=== PATIENT | female | born 1980 | race African-American/Black ===

== ENCOUNTER 2020-09-05 21:33 | Emergency (ER) | payer MEDICAID ==
[~2020-09-05] VITALS: Ht 177.8 cm; Wt 64.0 kg
[2020-09-05] MEDS ORDERED: DICYCLOMINE 10 MG/5 ML ORAL SYR PO STA (23:31)
[2020-09-05] MEDS ORDERED: ONDANSETRON HCL 4MG/2ML INJ IV STA (23:31)
[2020-09-05] MEDS ORDERED: MAGNESIUM/ALUMINUM HYDROXIDE/SIMETHICONE 30ML UDC PO STA (23:31)
[2020-09-05] MEDS ORDERED: SODIUM CHLORIDE 0.9% 1,000 ML IV ONE (23:45)
[2020-09-06 00:05] LABS: BASOPHILS % 0.6 % (0.0-2.0); CHLORIDE 106 mEq/L (98-107); HEMATOCRIT. 39.9 % (36.0-48.0); HEMOGLOBIN. 14.1 g/dL (12.0-16.0); MEAN CORPUSCULAR HEMOGLOBIN 30.2 pg (28.0-32.0); MEAN CORPUSCULAR VOLUME 85.5 fL (81.0-99.0); MEAN PLATELET VOLUME 7.2 fl (7.4-10.4); MONOCYTES % 7.9 % (2.0-8.0); NEUTROPHILS % 69.5 % (40.0-76.0); PLATELET 180 x1000/uL (130-400); RED BLOOD CELL COUNT 4.67 mill/uL (4.2-5.4); RED CELL DISTRIBUTION WIDTH 13.5 % (11.6-14.6)
[2020-09-06 00:11] LABS: HCG SCREEN NEGATIVE
[2020-09-06 01:00] VITALS: BP 117/88
[2020-09-06] MEDS ORDERED: ONDA4TAB5 MT (01:10)
[2020-09-07] MEDS ORDERED: MAG-55 MT (10:45)
== END 2020-09-06 02:20 | disposition home or self-care (01) ==
LOC: ER 21:33
DX: R11.2 Nausea with vomiting, unspecified (principal); Z88.6 Allergy status to analgesic agent; R56.9 Unspecified convulsions; Z98.51 Tubal ligation status
CPT/HCPCS: 36415; 80053; 83690; 84703; 85025; 96361; 96374; 99283; J2405; J7030; Z7610

== ENCOUNTER 2020-09-07 08:27 | Emergency (ER) | payer MEDICAID ==
[~2020-09-07] VITALS: Ht 170.2 cm; Wt 60.0 kg
[~2020-09-07 08:27] MED LIST: ONDA4TAB5 MT
[2020-09-07 10:45] VITALS: BP 118/80
[2020-09-07] MEDS ORDERED: MAG-55 MT (10:45)
== END 2020-09-07 11:15 | disposition home or self-care (01) ==
LOC: ER 08:27
DX: K21.00 Gastro-esophageal reflux disease with esophagitis, without bleeding (principal); Z79.82 Long term (current) use of aspirin; Z98.51 Tubal ligation status; Z98.890 Other specified postprocedural states; Z86.59 Personal history of other mental and behavioral disorders
CPT/HCPCS: 99281

== ENCOUNTER 2020-09-08 15:52 | Inpatient (IN) | payer MEDICAID ==
[~2020-09-08] VITALS: Ht 177.8 cm; Wt 69.4 kg
[~2020-09-08 15:52] MED LIST changes: +MAG-55 MT
[2020-09-08] MEDS ORDERED: SODIUM CHLORIDE 0.9% 1,000 ML IV ONE (16:15)
[2020-09-08 16:36] LABS: BASOPHILS % 0.5 % (0.0-2.0); EOSINOPHILS % 0.9 % (0.0-5.0); HEMATOCRIT. 39.6 % (36.0-48.0); HEMOGLOBIN. 13.5 g/dL (12.0-16.0); LYMPHOCYTES % 34.5 % (20.0-50.0); MEAN CORPUSCULAR HEMOGLOBIN 29.3 pg (28.0-32.0); MEAN CORPUSCULAR VOLUME 86.2 fL (81.0-99.0); MEAN PLATELET VOLUME 7.1 fl (7.4-10.4); NEUTROPHILS % 53.1 % (40.0-76.0); PLATELET 263 x1000/uL (130-400); RED BLOOD CELL COUNT 4.59 mill/uL (4.2-5.4); RED CELL DISTRIBUTION WIDTH 13.6 % (11.6-14.6)
[2020-09-08 16:43] LABS: CHLORIDE 111 mEq/L (98-107)
[2020-09-08 17:26] LABS: CLARITY URINE CLEAR (CLEAR); COLOR URINE YELLOW (YELLOW); KETONES URINE NEGATIVE (NEGATIVE); LEUKOCYTE ESTERASE URINE TRACE (NEGATIVE); NITRITE URINE NEGATIVE (NEGATIVE); OCCULT BLOOD URINE 2+ (NEGATIVE); PROTEIN URINE NEGATIVE (NEGATIVE); SPECIFIC GRAVITY URINE 1.005 (1.005-1.030); UROBILINOGEN URINE 0.2 E.U./dL (0.2-1.0)
[2020-09-08] MEDS ORDERED: POTASSIUM CHLORIDE 20MEQ TABLET SR PO ONE (17:30)
[2020-09-08 17:52] LABS: HCG SCREEN NEGATIVE
[2020-09-08] MEDS ORDERED: IOHEXOL-300 100 ML BOTTLE ONE (22:29)
[2020-09-08] MEDS ORDERED: CEFTRIAXONE 1 G PREMIX 50 ML IV ONE (23:00)
[2020-09-09] MEDS ORDERED: AZITHROMYCIN 500 MG in DEXT 5% WATER 250 ML IV SCH
[2020-09-09 04:00] VITALS: BP 132/84
[2020-09-09] MEDS ORDERED: LOPERAMIDE HCL 2MG CAPSULE PO PRN (05:00)
[2020-09-09 08:00] VITALS: BP 123/84
[2020-09-09] MEDS: ENOXAPARIN 40MG/0.4ML SYR SUBCUT SCH (09:07)
[2020-09-09] MEDS ORDERED: ONDANSETRON HCL 4MG/2ML INJ IV PRN (12:30)
[2020-09-09] MEDS ORDERED: ACETAMINOPHEN 325MG TABLET PO PRN (12:30)
[2020-09-09] MEDS ORDERED: MAGNESIUM/ALUMINUM HYDROXIDE/SIMETHICONE 30ML UDC PO PRN (13:30)
[2020-09-09 16:00] VITALS: BP 119/80
[2020-09-09 19:12] LABS: *AMPHETAMINES SCREEN URINE NEGATIVE (NEGATIVE); *BARBITURATES SCREEN URINE NEGATIVE (NEGATIVE); *BENZODIAZEPINES SCREEN URINE NEGATIVE (NEGATIVE); *COCAINE SCREEN URINE NEGATIVE (NEGATIVE); METHADONE URINE SCREEN NEGATIVE (NEGATIVE)
[2020-09-09 19:13] LABS: CANNABINOID URINE SCREEN NEGATIVE (NEGATIVE); OPIATES URINE SCREEN NEGATIVE (NEGATIVE); PHENCYCLIDINE URINE SCREEN NEGATIVE (NEGATIVE)
[2020-09-09 20:00] VITALS: BP 121/81
[2020-09-09] MEDS: FAMOTIDINE 20MG TABLET PO SCH (20:42)
[2020-09-10] VITALS: BP 125/89
[2020-09-10] MEDS ORDERED: AZITHROMYCIN 500MG in DEXTROSE 5% WATER 250ML IV SCH
[2020-09-10 06:35] LABS: CHLORIDE 109 mEq/L (98-107)
[2020-09-10 06:36] LABS: EOSINOPHILS % 3.3 % (0.0-5.0); HEMATOCRIT. 37.9 % (36.0-48.0); HEMOGLOBIN. 12.9 g/dL (12.0-16.0); LYMPHOCYTES % 30.9 % (20.0-50.0); MEAN CORPUSCULAR HEMOGLOBIN 29.1 pg (28.0-32.0); MEAN CORPUSCULAR VOLUME 85.4 fL (81.0-99.0); MEAN PLATELET VOLUME 7.1 fl (7.4-10.4); MONOCYTES % 13.6 % (2.0-8.0); NEUTROPHILS % 51.2 % (40.0-76.0); PLATELET 293 x1000/uL (130-400); RED BLOOD CELL COUNT 4.44 mill/uL (4.2-5.4); RED CELL DISTRIBUTION WIDTH 13.6 % (11.6-14.6)
[2020-09-10 07:57] VITALS: BP 112/77
[2020-09-10] MEDS: ENOXAPARIN 40MG/0.4ML SYR SUBCUT SCH (08:23)
[2020-09-10 11:40] VITALS: BP 110/72
[2020-09-10 16:00] VITALS: BP 109/76
[2020-09-10] MEDS ORDERED: POTASSIUM CHLORIDE 20MEQ TABLET SR PO NR (17:00)
[2020-09-10 20:00] VITALS: BP 115/78
[2020-09-10] MEDS: FAMOTIDINE 20MG TABLET PO SCH (20:51)
[2020-09-11] VITALS: BP 99/66
[2020-09-11 04:00] VITALS: BP 102/65
[2020-09-11 07:27] LABS: CHLORIDE 108 mEq/L (98-107)
[2020-09-11 07:34] LABS: HEMOGLOBIN. 13.1 g/dL (12.0-16.0); MEAN CORPUSCULAR VOLUME 86.8 fL (81.0-99.0); MEAN PLATELET VOLUME 7.2 fl (7.4-10.4); PLATELET 296 x1000/uL (130-400); RED BLOOD CELL COUNT 4.38 mill/uL (4.2-5.4); RED CELL DISTRIBUTION WIDTH 13.5 % (11.6-14.6)
[2020-09-11 08:00] VITALS: BP 99/63
[2020-09-11] MEDS: LACTOBACILLUS GG CAPSULE PO SCH (09:50)
[2020-09-11] MEDS: ENOXAPARIN 40MG/0.4ML SYR SUBCUT SCH (09:50)
[2020-09-11 12:00] VITALS: BP 108/72
[2020-09-11 14:18] LABS: PLATELET ESTIMATE NORMAL
[2020-09-11 16:00] VITALS: BP 113/76
[2020-09-11] MEDS: FAMOTIDINE 20MG TABLET PO SCH (19:32)
[2020-09-11 20:00] VITALS: BP 118/72
[2020-09-12 00:02] VITALS: BP 112/77
[2020-09-12 04:00] VITALS: BP 109/69
[2020-09-12] MEDS: LACTOBACILLUS GG CAPSULE PO SCH (09:17)
[2020-09-12] MEDS: ENOXAPARIN 40MG/0.4ML SYR SUBCUT SCH (09:19)
[2020-09-12 11:28] VITALS: BP 104/68
== END 2020-09-12 13:24 | disposition home or self-care (01) | DRG 137 ==
LOC: ER 15:52 → 7WST 09-09 00:51 → ENRESERV 09-09 02:39
PROVIDERS: ADMIT Internal Medicine; ATTEND Internal Medicine
DX: U07.1 COVID-19 (principal); E87.8 Other disorders of electrolyte and fluid balance, not elsewhere classified; D25.9 Leiomyoma of uterus, unspecified; G40.909 Epilepsy, unspecified, not intractable, without status epilepticus; D72.819 Decreased white blood cell count, unspecified; E87.6 Hypokalemia; Z87.891 Personal history of nicotine dependence; Z79.82 Long term (current) use of aspirin; Z79.899 Other long term (current) drug therapy
CPT/HCPCS: 36415; 74177; 80048; 80053; 80305; 81003; 82962; 84703; 85025; 87015; 87045; 87427; 87449; 93005; 99285; J0456; J0696; J1650; J2405; J7030; J7060; Q9967; U0003

== ENCOUNTER 2020-09-18 17:50 | Emergency (ER) | payer MEDICAID ==
[~2020-09-18] VITALS: Ht 165.1 cm; Wt 66.0 kg
[2020-09-18] MEDS ORDERED: ONDANSETRON HCL 4MG/2ML INJ IV ONE (18:45)
[2020-09-18] MEDS ORDERED: ACETAMINOPHEN 325MG TABLET PO ONE (18:45)
[2020-09-18] MEDS ORDERED: SODIUM CHLORIDE 0.9% 1,000 ML IV ONE (18:45)
[2020-09-18 20:12] LABS: BASOPHILS % 1.1 % (0.0-2.0); EOSINOPHILS % 0.9 % (0.0-5.0); HEMATOCRIT. 37.1 % (36.0-48.0); HEMOGLOBIN. 12.8 g/dL (12.0-16.0); LYMPHOCYTES % 28.6 % (20.0-50.0); MEAN CORPUSCULAR HEMOGLOBIN 30.6 pg (28.0-32.0); MEAN CORPUSCULAR VOLUME 88.7 fL (81.0-99.0); MEAN PLATELET VOLUME 6.9 fl (7.4-10.4); MONOCYTES % 10.1 % (2.0-8.0); NEUTROPHILS % 59.3 % (40.0-76.0); PLATELET 352 x1000/uL (130-400); RED BLOOD CELL COUNT 4.19 mill/uL (4.2-5.4); RED CELL DISTRIBUTION WIDTH 13.9 % (11.6-14.6)
[2020-09-18 20:16] LABS: CHLORIDE 109 mEq/L (98-107)
[2020-09-18 20:26] LABS: HCG SCREEN NEGATIVE
[2020-09-18 21:07] LABS: CLARITY URINE CLEAR (CLEAR); COLOR URINE YELLOW (YELLOW); KETONES URINE TRACE (NEGATIVE); LEUKOCYTE ESTERASE URINE TRACE (NEGATIVE); NITRITE URINE NEGATIVE (NEGATIVE); OCCULT BLOOD URINE 3+ (NEGATIVE); PROTEIN URINE TRACE (NEGATIVE); SPECIFIC GRAVITY URINE 1.021 (1.005-1.030); UROBILINOGEN URINE 0.2 E.U./dL (0.2-1.0)
[2020-09-18] MEDS: MECLIZINE 25MG TABLET PO ONE ×2 (21:19→23:52)
[2020-09-18] MEDS ORDERED: MECL-217 MT (23:08)
[2020-09-18] MEDS ORDERED: IOHEXOL-300 100 ML BOTTLE ONE (23:16)
[2020-09-18 23:50] VITALS: BP 130/82
[2020-09-19] MEDS ORDERED: CEPH500T MT (22:20)
== END 2020-09-19 01:12 | disposition home or self-care (01) ==
LOC: ER 17:50
DX: R10.9 Unspecified abdominal pain (principal); R42 Dizziness and giddiness; R56.9 Unspecified convulsions; Z88.0 Allergy status to penicillin
CPT/HCPCS: 36415; 70450; 71045; 74177; 76705; 80048; 80076; 81003; 81025; 83690; 84484; 84703; 85025; 93005; 96361; 96374; 99285; J2405; J7030; J8597; Q9967; Z7610

== ENCOUNTER 2020-09-19 18:38 | Emergency (ER) | payer MEDICAID ==
[~2020-09-19] VITALS: Ht 165.1 cm; Wt 52.0 kg
[~2020-09-19 18:38] MED LIST changes: +MECL-217 MT
[2020-09-19] MEDS ORDERED: SODIUM CHLORIDE 0.9% 1,000 ML IV ONE (19:45)
[2020-09-19 20:16] LABS: BASOPHILS % 0.4 % (0.0-2.0); HEMATOCRIT. 37.4 % (36.0-48.0); HEMOGLOBIN. 12.8 g/dL (12.0-16.0); LYMPHOCYTES % 11.8 % (20.0-50.0); MEAN CORPUSCULAR HEMOGLOBIN 30.4 pg (28.0-32.0); MEAN CORPUSCULAR VOLUME 88.7 fL (81.0-99.0); MONOCYTES % 3.6 % (2.0-8.0); NEUTROPHILS % 84.2 % (40.0-76.0); PLATELET 329 x1000/uL (130-400); RED BLOOD CELL COUNT 4.22 mill/uL (4.2-5.4); RED CELL DISTRIBUTION WIDTH 13.6 % (11.6-14.6)
[2020-09-19 20:20] LABS: CHLORIDE 112 mEq/L (98-107)
[2020-09-19 20:24] LABS: ETHANOL BLOOD < 10 mg/dL
[2020-09-19 21:26] LABS: CLARITY URINE CLEAR (CLEAR); COLOR URINE YELLOW (YELLOW); KETONES URINE NEGATIVE (NEGATIVE); LEUKOCYTE ESTERASE URINE TRACE (NEGATIVE); NITRITE URINE NEGATIVE (NEGATIVE); OCCULT BLOOD URINE 3+ (NEGATIVE); PROTEIN URINE NEGATIVE (NEGATIVE); SPECIFIC GRAVITY URINE 1.014 (1.005-1.030); UROBILINOGEN URINE 0.2 E.U./dL (0.2-1.0)
[2020-09-19 21:35] LABS: *AMPHETAMINES SCREEN URINE NEGATIVE (NEGATIVE); *BARBITURATES SCREEN URINE NEGATIVE (NEGATIVE); *BENZODIAZEPINES SCREEN URINE NEGATIVE (NEGATIVE); *COCAINE SCREEN URINE NEGATIVE (NEGATIVE); METHADONE URINE SCREEN NEGATIVE (NEGATIVE); OPIATES URINE SCREEN NEGATIVE (NEGATIVE); PHENCYCLIDINE URINE SCREEN NEGATIVE (NEGATIVE)
[2020-09-19 21:36] LABS: CANNABINOID URINE SCREEN NEGATIVE (NEGATIVE)
[2020-09-19] MEDS ORDERED: CEPH500T MT (22:20)
[2020-09-19 23:00] VITALS: BP 127/74
== END 2020-09-19 23:38 | disposition home or self-care (01) ==
LOC: ER 18:38
DX: N39.0 Urinary tract infection, site not specified (principal); R53.1 Weakness; R56.9 Unspecified convulsions; Z88.6 Allergy status to analgesic agent
CPT/HCPCS: 36415; 71045; 80053; 80305; 80320; 81003; 83880; 84484; 85025; 96360; 99285; J7030; G0480

== ENCOUNTER 2020-09-20 18:43 | Emergency (ER) | payer MEDICAID ==
[~2020-09-20] VITALS: Ht 177.8 cm; Wt 63.0 kg
[~2020-09-20 18:43] MED LIST changes: +CEPH500T MT
[2020-09-20] MEDS ORDERED: LORAZEPAM 2MG/ML CPJ IV PRN (20:15)
[2020-09-20] MEDS ORDERED: SODIUM CHLORIDE 0.9% 1,000 ML IV ONE (20:15)
[2020-09-20 20:48] LABS: BASOPHILS % 0.7 % (0.0-2.0); EOSINOPHILS % 0.3 % (0.0-5.0); HEMATOCRIT. 41.2 % (36.0-48.0); HEMOGLOBIN. 14.2 g/dL (12.0-16.0); LYMPHOCYTES % 22.2 % (20.0-50.0); MEAN CORPUSCULAR HEMOGLOBIN 30.2 pg (28.0-32.0); MEAN CORPUSCULAR VOLUME 87.6 fL (81.0-99.0); MEAN PLATELET VOLUME 7.3 fl (7.4-10.4); MONOCYTES % 10.5 % (2.0-8.0); NEUTROPHILS % 66.3 % (40.0-76.0); PLATELET 369 x1000/uL (130-400); RED CELL DISTRIBUTION WIDTH 14.3 % (11.6-14.6)
[2020-09-20 20:53] LABS: CHLORIDE 111 mEq/L (98-107)
[2020-09-20 20:56] LABS: HCG SCREEN NEGATIVE
[2020-09-20 21:11] LABS: INR 1.1; PROTHROMBIN TIME 11.4 sec (9.6-11.0)
[2020-09-20 21:51] LABS: CLARITY URINE CLOUDY (CLEAR); COLOR URINE YELLOW (YELLOW); KETONES URINE TRACE (NEGATIVE); LEUKOCYTE ESTERASE URINE 1+ (NEGATIVE); NITRITE URINE NEGATIVE (NEGATIVE); OCCULT BLOOD URINE 2+ (NEGATIVE); PH URINE 5.5 (4.5-8.0); PROTEIN URINE NEGATIVE (NEGATIVE); SPECIFIC GRAVITY URINE 1.017 (1.005-1.030); UROBILINOGEN URINE 0.2 E.U./dL (0.2-1.0)
[2020-09-21] MEDS ORDERED: PIPERACILLIN/TAZOBACTAM 3.375GM/50ML PREMIX IV SCH
[2020-09-21] MEDS ORDERED: KETOROLAC 30MG/ML VIAL IV ONE (00:30)
[2020-09-21] MEDS ORDERED: NITROFURANTOIN 100MG M/M CAPSULE PO ONE (00:30)
[2020-09-21] MEDS ORDERED: NITR100C MT (02:06)
[2020-09-21] MEDS ORDERED: HYDR50CA5 MT (02:06)
[2020-09-21] MEDS ORDERED: [UNRECOGNIZED DRUG - CODE] PO (02:06)
[2020-09-21 02:33] VITALS: BP 117/87
[2020-09-22] MEDS ORDERED: MELA3TAB40 MT (05:46)
[2020-09-22] MEDS ORDERED: LORA-249 MT (11:07)
== END 2020-09-21 03:47 | disposition home or self-care (01) ==
LOC: ER 18:43
DX: F41.9 Anxiety disorder, unspecified (principal); I49.9 Cardiac arrhythmia, unspecified; N39.0 Urinary tract infection, site not specified
CPT/HCPCS: 36415; 76700; 80053; 81003; 81025; 83690; 84703; 85025; 85610; 87040; 93005; 96361; 96365; 96375; 99285; J1885; J2060; J2543

== ENCOUNTER 2020-09-22 05:15 | Emergency (ER) | payer MEDICAID, OTHER ==
[~2020-09-22] VITALS: Ht 167.6 cm; Wt 61.0 kg
[~2020-09-22 05:15] MED LIST changes: +HYDR50CA5 MT; +NITR100C MT; +[UNRECOGNIZED DRUG - CODE] PO
[2020-09-22 05:17] VITALS: BP 141/90
[2020-09-22] MEDS ORDERED: MELA3TAB40 MT (05:46)
[2020-09-22] MEDS ORDERED: LORA-249 MT (11:07)
== END 2020-09-22 06:15 | disposition home or self-care (01) ==
LOC: ER 05:15
DX: F41.9 Anxiety disorder, unspecified (principal); F45.21 Hypochondriasis; R56.9 Unspecified convulsions; Z88.6 Allergy status to analgesic agent; Z87.01 Personal history of pneumonia (recurrent)
CPT/HCPCS: 99283

== ENCOUNTER 2020-09-22 07:18 | Emergency (ER) | payer OTHER ==
[~2020-09-22] VITALS: Ht 177.8 cm; Wt 67.0 kg
[~2020-09-22 07:18] MED LIST changes: +MELA3TAB40 MT
[2020-09-22] MEDS ORDERED: LORAZEPAM 2MG/ML CPJ IV ONE (08:00)
[2020-09-22] MEDS ORDERED: SODIUM CHLORIDE 0.9% 1,000 ML IV ONE (08:00)
[2020-09-22 08:12] LABS: BASOPHILS % 1.2 % (0.0-2.0); EOSINOPHILS % 0.5 % (0.0-5.0); HEMATOCRIT. 37.4 % (36.0-48.0); HEMOGLOBIN. 12.9 g/dL (12.0-16.0); LYMPHOCYTES % 24.6 % (20.0-50.0); MEAN CORPUSCULAR HEMOGLOBIN 30.1 pg (28.0-32.0); MEAN CORPUSCULAR VOLUME 87.4 fL (81.0-99.0); MEAN PLATELET VOLUME 7.6 fl (7.4-10.4); NEUTROPHILS % 61.7 % (40.0-76.0); PLATELET 341 x1000/uL (130-400); RED BLOOD CELL COUNT 4.28 mill/uL (4.2-5.4)
[2020-09-22 08:21] LABS: CHLORIDE 112 mEq/L (98-107)
[2020-09-22 08:25] LABS: ETHANOL BLOOD < 10 mg/dL
[2020-09-22 09:45] LABS: CLARITY URINE CLEAR (CLEAR); COLOR URINE YELLOW (YELLOW); KETONES URINE 1+ (NEGATIVE); LEUKOCYTE ESTERASE URINE TRACE (NEGATIVE); NITRITE URINE NEGATIVE (NEGATIVE); OCCULT BLOOD URINE 2+ (NEGATIVE); PROTEIN URINE NEGATIVE (NEGATIVE); UROBILINOGEN URINE 0.2 E.U./dL (0.2-1.0)
[2020-09-22 10:19] LABS: *BARBITURATES SCREEN URINE NEGATIVE (NEGATIVE); *BENZODIAZEPINES SCREEN URINE NEGATIVE (NEGATIVE); *COCAINE SCREEN URINE NEGATIVE (NEGATIVE)
[2020-09-22 10:20] LABS: *AMPHETAMINES SCREEN URINE NEGATIVE (NEGATIVE); CANNABINOID URINE SCREEN NEGATIVE (NEGATIVE); METHADONE URINE SCREEN NEGATIVE (NEGATIVE); OPIATES URINE SCREEN NEGATIVE (NEGATIVE); PHENCYCLIDINE URINE SCREEN NEGATIVE (NEGATIVE)
[2020-09-22] MEDS ORDERED: LORA-249 MT (11:07)
[2020-09-22 13:08] LABS: BG BASE EXCESS -3.1 mmol/L (-2.0-2.0); BG CARBOXYHEMOGLOBIN 0.3 % (0.5-1.5); BG DEOXYHEMOGLOBIN 2.8 % (0.0-5.0); BG FRACTION INSPIRED OXYGEN 21; BG HCO3 ACT 19.6 mmol/L (22.0-26.0); BG METHEMOGLOBIN 0.1 % (0.0-1.5); BG OXYGEN SATURATION 97.2 % (92.0-98.5); BG OXYHEMOGLOBIN 96.8 % (94.0-97.0); BG PCO2 28.4 mmHg (35.0-45.0); BG PH 7.456 (7.350-7.450); BG PO2 95.2 mmHg (75.0-100.0); BG SAMPLE SITE RIGHT BRACHIAL; BG VENT MODE ROOM AIR
[2020-09-22 14:01] VITALS: BP 124/85
== END 2020-09-22 14:03 | disposition home or self-care (01) ==
LOC: ER 07:34
DX: R00.2 Palpitations (principal); F41.9 Anxiety disorder, unspecified; R56.9 Unspecified convulsions; Z88.6 Allergy status to analgesic agent; Z87.01 Personal history of pneumonia (recurrent)
CPT/HCPCS: 36415; 36600; 80053; 80305; 80320; 81003; 81025; 82375; 82805; 85025; 93005; 96361; 96374; 99285; J2060; J7030; G0480

== ENCOUNTER 2020-09-24 14:17 | Emergency (ER) | payer OTHER ==
[~2020-09-24] VITALS: Ht 165.1 cm; Wt 73.0 kg
[~2020-09-24 14:17] MED LIST changes: +LORA-249 MT
[2020-09-24] MEDS ORDERED: LORAZEPAM 0.5MG TABLET PO ONE (15:00)
[2020-09-24 15:59] LABS: CHLORIDE 111 mEq/L (98-107)
[2020-09-24 16:01] LABS: BASOPHILS % 0.8 % (0.0-2.0); EOSINOPHILS % 0.2 % (0.0-5.0); HEMATOCRIT. 38.1 % (36.0-48.0); HEMOGLOBIN. 13.3 g/dL (12.0-16.0); LYMPHOCYTES % 22.8 % (20.0-50.0); MEAN CORPUSCULAR HEMOGLOBIN 30.8 pg (28.0-32.0); MEAN CORPUSCULAR VOLUME 88.4 fL (81.0-99.0); MEAN PLATELET VOLUME 7.7 fl (7.4-10.4); MONOCYTES % 9.9 % (2.0-8.0); NEUTROPHILS % 66.3 % (40.0-76.0); PLATELET 267 x1000/uL (130-400); RED BLOOD CELL COUNT 4.31 mill/uL (4.2-5.4); RED CELL DISTRIBUTION WIDTH 13.7 % (11.6-14.6)
[2020-09-24 17:03] LABS: CLARITY URINE CLEAR (CLEAR); COLOR URINE YELLOW (YELLOW); KETONES URINE 1+ (NEGATIVE); LEUKOCYTE ESTERASE URINE NEGATIVE (NEGATIVE); NITRITE URINE NEGATIVE (NEGATIVE); OCCULT BLOOD URINE 2+ (NEGATIVE); PROTEIN URINE NEGATIVE (NEGATIVE); SPECIFIC GRAVITY URINE 1.013 (1.005-1.030); UROBILINOGEN URINE 0.2 E.U./dL (0.2-1.0)
[2020-09-24 17:23] LABS: *AMPHETAMINES SCREEN URINE NEGATIVE (NEGATIVE); *BARBITURATES SCREEN URINE NEGATIVE (NEGATIVE); *BENZODIAZEPINES SCREEN URINE NEGATIVE (NEGATIVE)
[2020-09-24 17:24] LABS: *COCAINE SCREEN URINE NEGATIVE (NEGATIVE); CANNABINOID URINE SCREEN NEGATIVE (NEGATIVE); METHADONE URINE SCREEN NEGATIVE (NEGATIVE); OPIATES URINE SCREEN NEGATIVE (NEGATIVE); PHENCYCLIDINE URINE SCREEN NEGATIVE (NEGATIVE)
[2020-09-24] MEDS ORDERED: SODIUM CHLORIDE 0.9% 1,000 ML IV ONE (18:00)
[2020-09-24 18:38] VITALS: BP 115/80
[2020-09-24] MEDS ORDERED: CEPH250T MT (20:04)
== END 2020-09-24 21:12 | disposition home or self-care (01) ==
LOC: ER 14:17
DX: R07.89 Other chest pain (principal); N39.0 Urinary tract infection, site not specified; F41.9 Anxiety disorder, unspecified; G40.909 Epilepsy, unspecified, not intractable, without status epilepticus; Z88.6 Allergy status to analgesic agent
CPT/HCPCS: 36415; 71045; 80053; 80305; 81003; 83880; 84484; 85025; 93005; 96360; 96361; 99285; J7030

== ENCOUNTER 2020-10-10 13:43 | Emergency (ER) | payer MEDICAID, OTHER ==
[~2020-10-10] VITALS: Ht 177.8 cm; Wt 60.0 kg
[~2020-10-10 13:43] MED LIST changes: +CEPH250T MT
[2020-10-10] MEDS ORDERED: TETANUS, DIPHTHERIA, PERTUSSIS VAC/PF 0.5ML (>7YR OLD) IM ONE (16:15)
[2020-10-10] MEDS ORDERED: HYDROCODONE/ACETAMINOPHEN 5/325MG TABLET PO ONE (16:15)
[2020-10-10 17:50] LABS: HCG SCREEN NEGATIVE
[2020-10-10 17:57] LABS: CLARITY URINE CLOUDY (CLEAR); COLOR URINE YELLOW (YELLOW); KETONES URINE NEGATIVE (NEGATIVE); LEUKOCYTE ESTERASE URINE 2+ (NEGATIVE); NITRITE URINE NEGATIVE (NEGATIVE); OCCULT BLOOD URINE NEGATIVE (NEGATIVE); PROTEIN URINE NEGATIVE (NEGATIVE); SPECIFIC GRAVITY URINE 1.015 (1.005-1.030); UROBILINOGEN URINE 0.2 E.U./dL (0.2-1.0)
[2020-10-10] MEDS ORDERED: NITR-87 MT (20:01)
[2020-10-10] MEDS ORDERED: CEPH500C2 MT (20:06)
[2020-10-10 21:43] VITALS: BP 119/79
== END 2020-10-10 20:48 | disposition home or self-care (01) ==
LOC: ER 13:43
DX: R05 Cough (principal); N39.0 Urinary tract infection, site not specified; F41.9 Anxiety disorder, unspecified; R56.9 Unspecified convulsions; Z88.6 Allergy status to analgesic agent; Z98.51 Tubal ligation status; Z98.890 Other specified postprocedural states
CPT/HCPCS: 71045; 81003; 81025; 84703; 93005; 99285

== ENCOUNTER 2024-03-08 16:45 | Emergency (ER) | payer SELFPAY ==
[~2024-03-08] VITALS: Ht 180.3 cm; Wt 68.0 kg
[~2024-03-08 16:45] MED LIST changes: +CEPH500C2 MT
[2024-03-08 16:49] VITALS: PULSE 93; O2SAT 99
[2024-03-08 16:52] VITALS: BP 134/86; RESP 16; O2SAT 100
[2024-03-08 17:15] LABS: GLUCOSE URINE NEGATIVE (NEGATIVE); KETONES URINE NEGATIVE (NEGATIVE)
[2024-03-08 17:21] LABS: CLARITY URINE TURBID (CLEAR); COLOR URINE BLOODY (YELLOW); PROTEIN URINE 1+ (NEGATIVE)
[2024-03-08 17:22] LABS: LEUKOCYTE ESTERASE URINE 2+ (NEGATIVE); NITRITE URINE POSITIVE (NEGATIVE); OCCULT BLOOD URINE 3+ (NEGATIVE); UROBILINOGEN URINE 0.2 E.U./dL (0.2-1.0)
[2024-03-08 17:23] LABS: BASOPHILS % 1.5 % (0.0-2.0); DIFFERENTIAL COMMENT 0; EOSINOPHILS % 3.5 % (0.0-5.0); HEMATOCRIT. 32.6 % (36.0-48.0); HEMOGLOBIN. 10.2 g/dL (12.0-16.0); LYMPHOCYTES % 31.7 % (20.0-50.0); MEAN CORPUSCULAR HEMOGLOBIN 24.5 pg (28.0-32.0); MEAN CORPUSCULAR HGB CONC 31.3 g/dL (31.0-37.0); MEAN CORPUSCULAR VOLUME 78.1 fL (81.0-99.0); MEAN PLATELET VOLUME 7.1 fl (7.4-10.4); MONOCYTES % 9.8 % (2.0-8.0); NEUTROPHILS % 53.5 % (40.0-76.0); PLATELET 313 x1000/uL (130-400); RED BLOOD CELL COUNT 4.17 mill/uL (4.2-5.4); WHITE BLOOD COUNT 4.8 x1000/uL (4.5-11.0)
[2024-03-08 17:29] LABS: CARBON DIOXIDE 28 mEq/L (21-32); CHLORIDE 110 mEq/L (98-107); POTASSIUM 3.1 mEq/L (3.5-5.1); SODIUM 143 mEq/L (136-145)
[2024-03-08 17:30] LABS: CALCIUM 9.4 mg/dL (8.7-10.4)
[2024-03-08 17:34] LABS: GLUCOSE 69 mg/dL (70-105); HCG SCREEN NEGATIVE
[2024-03-08 17:35] LABS: UREA NITROGEN BLOOD 11 mg/dL (9-23)
[2024-03-08 17:36] LABS: ALANINE AMINOTRANSFERASE 7 IU/L (10-49); ALBUMIN 4.5 g/dL (3.2-4.8); ASPARTATE AMINOTRANSFERASE 20 IU/L (<34)
[2024-03-08 17:37] LABS: BILIRUBIN DIRECT 0.1 mg/dL (<=3.0); BILIRUBIN TOTAL 0.5 mg/dL (0.1-1.0); PROTEIN TOTAL 7.4 g/dL (6.0-8.3)
[2024-03-08 17:44] VITALS: TEMP 99.2
[2024-03-08 17:44] LABS: TROPONIN I HIGH SENSITIVITY < 4 ng/L (3.0-34)
[2024-03-08] MEDS: ACETAMINOPHEN 325MG TABLET PO NR (17:44)
[2024-03-08] MEDS: ONDANSETRON HCL 4MG TABLET PO NR (17:44)
[2024-03-08] MEDS: DICYCLOMINE HCL 10MG/ML 2ML VIAL IM NR (17:57)
[2024-03-08] MEDS: POTASSIUM CHLORIDE 20MEQ/PACKET PO NR (17:57)
[2024-03-08] MEDS ORDERED: NITR100C MT (18:04)
[2024-03-08 18:22] LABS: SQUAMOUS EPITHELIAL CELL URINE 1+ /lpf (RARE/1+)
[2024-03-08 18:23] LABS: BACTERIA URINE 3+; RBC URINE TNTC /hpf (0-2)
== END 2024-03-08 18:44 | disposition home or self-care (01) ==
LOC: ER 16:45
DX: N39.0 Urinary tract infection, site not specified (principal); E87.6 Hypokalemia; D50.9 Iron deficiency anemia, unspecified; I10 Essential (primary) hypertension; Z98.51 Tubal ligation status; Z88.6 Allergy status to analgesic agent; Z79.899 Other long term (current) drug therapy
CPT/HCPCS: 99284; 80076; 80048; 81003; 81025; 82962; 84703; 83690; 85025; 84484; 36415; 93005; 96372; Q0162; J0500